=== PATIENT | female | born 1965 | race Caucasian/White ===

== ENCOUNTER 2024-11-27 17:19 | Emergency (ER) | payer OTHER ==
[~2024-11-27] VITALS: Ht 170.2 cm; Wt 102.2 kg
--- NOTE | 2024-11-27 17:29 | ED.PDOC ---
GI ASSESSMENT HPI Comments This is a . The morbidly obese 59 year old female NAHID presenting to the ED with chief complaint of abdominal pain. Patient reports that she has been experiencing upper abdominal pain with associated radiation to the back and nausea for the past 3 hours, worsening over time. EMS states they provided 200mcg of Fentanyl with only minor relief in pain noted. Patient denies any vomiting, diarrhea, fever, chills, dysuria, or hematemesis. Patient was riding and pain at time of evaluation. Patient was hypotensive on arrival. Time Seen by MD: 17:27 Reviewed Notes: Nurses Notes, Mfg Ass[employer] Notes, Medications, Allergies Allergies: Coded Allergies: NO KNOWN ALLERGIES (Unverified , 11/27/24) Information Source: Patient, Emergency Med Personnel Mode of Arrival: EMS Timing: Hours Duration: Since onset Prehospital treatment: None Quality: Cramping, Sharp, Stabbing Vomitus: None Stool: Normal Severity: Severe Recent: None Recent Hx of: None Pain Location: Other (Upper) Modifying Factors: Nothing Associated sign and symptoms: Nausea, Abdominal Pain Past Medical History PAST MEDICAL HISTORY: HTN Surgical History: Denies all surgeries BACK MAKER History: Denies all BACK MAKER Hx Family History Family History: Reviewed,noncontributory to illness Social History Smoker: Non-Smoker Alcohol: Denies ETOH Use Drugs: Denies Drug Use Lives In: Home Constitutional: denies: chills, diaphoresis, fatigue, fever, malaise, sweats, weakness, others EENTM: denies: blurred vision, double vision, ear bleeding, ear discharge, ear drainage, ear pain, ear ringing, eye pain, eye redness, hearing loss, mouth pain, mouth swelling, nasal discharge, nose bleeding, nose congestion, nose pain, photophobia, tearing, throat pain, throat swelling, voice changes, others Respiratory: denies: cough, hemoptysis, orthopnea, SOB at rest, shortness of breath, SOB with excertion, stridor, wheezing, others Cardiovascular: denies: chest pain, dizzy spells, diaphoresis, Dyspnea on exertion, edema, irregular heart beat, left arm pain, lightheadedness, palpitations, PND, syncope, others Gastrointestinal: reports: abdominal pain, nausea; denies: abdomen distended, blood streaked bowels, constipated, diarrhea, dysphagia, difficulty swallowing, hematemesis, melena, poor appetite, poor fluid intake, rectal bleeding, rectal pain, vomiting, others Genitourinary: denies: abnormal vagina bleeding, burning, dyspareunia, dysuria, flank pain, frequency, hematuria, incontinence, pain, , vagina discharge, urgency, others Neurological: denies: dizziness, fainting, headache, left sided numbness, left sided weakness, numbness, paresthesia, pre-existing deficit, right sided numbness, right sided weakness, seizure, speech problems, tingling, tremors, weakness, others Musculoskeletal: denies: back pain, gout, joint pain, joint swelling, muscle pain, muscle stiffness, neck pain, others Integumetry: denies: bruises, change in color, change in hair/nails, dryness, laceration, lesions, lumps, rash, wounds, others Allergic/Immunocompromised: denies: Difficulty Healing, Frequent Infections, Hives, Itching, others Hematologic/Lymphatic: denies: anemia, blood clots, easy bleeding, easy bruising, swollen glands, others Endocrine: denies: excessive hunger, excessive sweating, excessive thirst, excessive urination, flushing, intolerance to cold, intolerance to heat, unexplained weight gain, unexplained weight loss, others Psychiatric: denies: anxiety, bipolar disorder, depression, hopeless, panic disorder, schizophrenia, sleepless, suicidal, others All Other Systems: Reviewed and Negative Physical Exam General Appearance: Moderate Distress (Patient was in [id number] distress due to abdominal pain concerns at time of evaluation.), Obese HEENT: Normal ENT Inspection, Pharynx Normal, TMs Normal Neck: Full Range of Motion, Non-Tender, Normal, Normal Inspection Respiratory: Chest Non-Tender, Lungs Clear, No Accessory Muscle Use, No Respiratory Distress, Normal Breath Sounds Cardiovascular: No Edema, No JVD, No Murmur, No Gallop, Normal Peripheral Pulses, Regular Rate/Rhythm Breast Exam: Deferred Gastrointestinal: Tenderness (Patient has a idixkrui-kv-tjbmee tenderness to palpation throughout the bilateral epigastric region as well as extending into the periumbilical region. Difficult to assess due to body habitus. No pulsatile masses. Abdomen was reasonably soft.) Genitalia: Deferred Pelvic: Deferred Rectal: Deferred Extremities: No calf tenderness, Normal capillary refill, Non-tender Musculoskeletal : Apperance: Normal Neurologic: Alert Cerebellar Function: NOT DONE Reflexes: NOT DONE Skin: Dry, Normal Color, Warm Lymphatic: No Adenopathy Was a procedure done? Was a procedure done?: No GI differential Dx Differential Diagnosis: Appendicitis, Cholangitis, Cholecystitis, Constipation, Diverticular disease, Gastritis/PUD, Gastroenteritis, Pancreatitis, Kidney Stone X-Ray, Labs, Meds, VS Vital Signs Date Time Temp Pulse Resp B/P (MAP) Pulse Ox O2 Delivery O2 Flow Rate FiO2 11/27/24 22:00 66 16 125/86 (99) 91 11/27/24 21:00 78 18 147/51 11/27/24 20:16 81 18 169/82 11/27/24 20:00 97.9 76 23 169/82 (111) 97 97.9 11/27/24 19:30 Room Air* 0 21 11/27/24 19:00 87 18 166/85 11/27/24 18:30 64 11/27/24 18:01 69 15 195/85 11/27/24 17:51 97.7 79 30 92/70 97 97.7 11/27/24 17:50 69 15 95 Room Air* 0 21 11/27/24 17:48 98.2 69 15 195/85 (121) 95 98.2 Lab Test 11/27/24 23:09 11/27/24 20:45 11/27/24 18:32 11/27/24 17:39 Range/Units Urine Color Yellow Yellow Urine Clarity Clear Clear Urine pH 6.0 5.0-9.0 Urine Specific [place] > 1.035 H 1.001-1.035 Urine Protein 1+ H Negative Urine Ketones Negative Negative Urine Blood Negative Negative /uL Urine Nitrite Negative Negative Urine Bilirubin Negative Negative Urine Urobilinogen Normal Negative mg/dL Urine Leukocyte Esterase Negative Negative /uL Urine RBC 22 0 - 4 /hpf Urine Microscopic WBC 47 H 0-5 /HPF Urine Squamous Epithelial Cells Mod <5 /hpf Urine Renal Epithelial Cells Few None Seen /hpf Urine Bacteria Few H None Seen /hpf Urine Mucus Few None Seen Urine Glucose Normal Normal mg/dL Urine Opiates Screen Neg NEGATIVE Urine Fentanyl Screen Pos NEGATIVE Urine Barbiturates Screen Neg NEGATIVE Urine Phencyclidine Screen Neg NEGATIVE Urine Amphetamines Screen Pos NEGATIVE Urine Benzodiazepines Screen Neg NEGATIVE Urine Cocaine Screen Neg NEGATIVE Urine Cannabinoids Screen Neg NEGATIVE Troponin I High Sensitivity 8 10 6 </=34 ng/L White Blood Count 12.2 H 4.4-10.8 10^3/uL Red Blood Count 5.10 4.0-5.20 10^6/uL Hemoglobin 14.6 12.2-16.2 g/dL Hematocrit 42.9 36.0-46.0 % Mean Corpuscular Volume 84.2 80.0-100.0 fL Mean Corpuscular Hemoglobin 28.6 28.0-32.0 pg Mean Corpuscular Hemoglobin Concent 33.9 32.0-36.0 g/dL Red Cell Distribution Width 15.2 H 11.8-14.3 % Platelet Count 341 140-450 10^3/uL Mean Platelet Volume 7.8 6.9-10.8 fL Neutrophils (%) (Auto) 79.7 37.0-80.0 % Lymphocytes (%) (Auto) 13.4 10.0-50.0 % Monocytes (%) (Auto) 6.0 0.0-12.0 % Eosinophils (%) (Auto) 0.2 0.0-7.0 % Basophils (%) (Auto) 0.7 0.0-2.0 % Neutrophils # (Auto) 9.8 H 1.6-8.6 10 ^3/uL Lymphocytes # (Auto) 1.6 0.4-5.4 10 ^3/uL Monocytes # (Auto) 0.7 0-1.3 10 ^3/uL Eosinophils # (Auto) 0 0-0.8 10 ^3/uL Basophils # (Auto) 0.1 0-0.2 10 ^3/uL Nucleated Red Blood Cells 0.1 % Sodium Level 142 136-145 mmol/L Potassium Level 3.5 3.5-5.1 mmol/L Chloride Level 107 98-107 mmol/L Carbon Dioxide Level 25 20-31 mmol/L Anion Gap 10 5-15 Blood Urea Nitrogen 17 9-23 mg/dL Creatinine 1.18 H 0.550-1.02 mg/dL Glomerular Filtration Rate Calc 53 >90 mL/min BUN/Creatinine Ratio 14.4 10.0-20.0 Serum Glucose 111 H 74-106 mg/dL Lactic Acid Level 1.9 0.4-2.0 mmol/L Calcium Level 9.4 8.7-10.4 mg/dL Total Bilirubin 0.4 0.2-1.0 mg/dL Aspartate Amino Transferase (AST) 21 13-40 U/L Alanine Aminotransferase (ALT) 12 7-40 U/L Alkaline Phosphatase 101 46-116 U/L Total Protein 7.4 5.7-8.2 g/dL Albumin 4.4 3.2-4.8 g/dL Lipase 30 12-53 U/L Plasma/Serum Blood Alcohol 3.1 <10 mg/dL Current Medications Medications (Trade) Dose Ordered Sig/Roque Route Start Time Stop Time Status Last Admin Hydromorphone HCl (Dilaudid Injection) 1 mg ONCE ONCE IV 11/27/24 17:30 11/27/24 17:31 DC 11/27/24 18:01 Ondansetron HCl (Zofran) 4 mg ONCE ONCE IV 11/27/24 17:30 11/27/24 17:31 DC 11/27/24 18:00 Hydromorphone HCl (Dilaudid Injection) 1 mg ONCE ONCE IV 11/27/24 20:00 11/27/24 20:01 DC 11/27/24 20:16 X-Ray, Labs, Meds, VS Comment All studies performed the ED were evaluated by me personally. Serum laboratories were only remarkable for a leukocytosis and urine confirmed a urinary tract infection. Patient was given a dose of Rocephin and. CT with contrast of the abdomen and pelvis revealed a developing cholecystitis as well as uterine fibroids. Due to the patient's fluctuating blood pressure concerns as well as the probable development of a acute cholecystitis, patient will require admission. Patient is a [facility] patient therefore, I spoke with Dr. Rojas. Advised him of patient presentation as well as laboratory and imaging findings. He agreed to accept the patient is a transfer. Authorization number [id number]. Time of 1ST Reevaluation: 22:14 Reevaluation 1ST: Improved Consultation: PCP, Surgery Patient Education/Counseling: Diagnosis, Treatment Family Education/Counseling: Diagnosis, Treatment, No Family Present SEPSIS Sepsis Screen Recent Procedure: No On Antibiotic Therapy: No Respiratory Rate >20: No Heart Rate >90: No Temp<36 C (96.8 F) or >38.3 C: No SBP <90 or MAP <65 mmHG: No New Acute Mental Status Change: No Is the patient on CPAP, BIPAP,: No Physician Orders Heplock Iv (11/27/24 ) Ct Ab Pel With Iv Con Only (11/27/24 17:25) Imaging Transfer Request (11/27/24 23:55) Ceftriaxone Ivpb Rocephin (11/28/24 00:30) Vital Signs Date Time Temp Pulse Resp B/P (MAP) Pulse Ox O2 Delivery O2 Flow Rate FiO2 11/27/24 22:00 66 16 125/86 (99) 91 11/27/24 21:00 78 18 147/51 11/27/24 20:16 81 18 169/82 11/27/24 20:00 97.9 76 23 169/82 (111) 97 97.9 11/27/24 19:30 Room Air* 0 21 11/27/24 19:00 87 18 166/85 11/27/24 18:30 64 11/27/24 18:01 69 15 195/85 11/27/24 17:51 97.7 79 30 92/70 97 97.7 11/27/24 17:50 69 15 95 Room Air* 0 21 11/27/24 17:48 98.2 69 15 195/85 (121) 95 98.2 Laboratory Tests Test 11/27/24 17:39 Lactic Acid Level 1.9 mmol/L (0.4-2.0) White Blood Count 12.2 10^3/uL (4.4-10.8) H Medications Medications Dose Ordered Sig/Roque Route Start Time Stop Time Status Last Admin Dose Admin Hydromorphone HCl 1 mg ONCE ONCE IV 11/27/24 17:30 11/27/24 17:31 DC 11/27/24 18:01 Hydromorphone HCl 1 mg ONCE ONCE IV 11/27/24 20:00 11/27/24 20:01 DC 11/27/24 20:16 Ondansetron HCl 4 mg ONCE ONCE IV 11/27/24 17:30 11/27/24 17:31 DC 11/27/24 18:00 Departure 1 Departure Time of Disposition: 22:14 Impression: Primary Impression: Cholecystitis Additional Impression: Urinary tract infection Disposition: 02 SHORT TERM HOSPITAL Condition: Fair Discharged With: Self Critical Care Note Critical Care Time?: No Stability Stability form required: No Heart Score Heart Score: Heart Score Response (Comments) Value History N/A 0 EKG N/A 0 Age N/A 0 Risk Factors N/A 0 Troponin N/A 0 Total 0 I personally scribed for NANCY DAVIS PAC ([email or web address]) on 11/27/24 at 17:29. Electronically submitted by Ayaan German ([email or web address]). NANCY DAVIS PAC Nov 27, 2024 17:29
[2024-11-27 17:50] VITALS: PULSE 69; RESP 15; O2SAT 95
[2024-11-27 17:53] LABS: Hematocrit 42.9 % (36.0-46.0); Hemoglobin 14.6 g/dL (12.2-16.2); Mean Corpuscular Hemoglobin 28.6 pg (28.0-32.0); Mean Corpuscular Volume 84.2 fL (80.0-100.0); Nucleated Red Blood Cells % 0.1 %
[2024-11-27] MEDS: ONDANSETRON HCL 4 MG/2 ML VIAL IV ONE (18:00)
[2024-11-27] MEDS: HYDROmorphone HCL 2 MG/ML VL/or syr IV ONE ×2 (18:01→20:16)
[2024-11-27] MEDS: IOHEXOL 300 MG/ML 100ML BOTTLE IJ ONE (18:30)
[2024-11-27 18:55] LABS: Alanine Aminotransferase 12 U/L (7-40); Albumin 4.4 g/dL (3.2-4.8); Alkaline Phosphatase 101 U/L (46-116); Anion Gap 10 (5-15); BUN/Creatinine Ratio 14.4 (10.0-20.0); Bilirubin, Total 0.4 mg/dL (0.2-1.0); Blood Urea Nitrogen 17 mg/dL (9-23); Calcium 9.4 mg/dL (8.7-10.4); Carbon Dioxide 25 mmol/L (20-31); Chloride 107 mmol/L (98-107); Glucose 111 mg/dL (74-106); Potassium 3.5 mmol/L (3.5-5.1); Sodium 142 mmol/L (136-145); Total Protein 7.4 g/dL (5.7-8.2)
--- NOTE | 2024-11-27 19:01 | ECG ---
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
[2024-11-27 19:07] LABS: Lipase 30 U/L (12-53)
--- NOTE | 2024-11-27 22:03 | DVH ---
CLINICAL HISTORY: Severe upper abdominal pain TECHNIQUE: CT of the abdomen and pelvis was performed with intravenous contrast. This exam was perfor med according to our departmental dose optimization program. Up-to-date CT equipment and radiation do se reduction techniques are utilized as appropriate. 26.05 CTDIVol: 26.05 mGy DLP: 26.05 mGy-cm WID: COMPARISON: None FINDINGS: Lower Thorax: Normal-sized heart without pericardial effusion. Mild mitral annular calcifications. L jerome bases are clear. Liver and Biliary system: Liver is normal in size. Mild nodular contour of the liver. No discrete hep atic lesion. Major portal veins are patent. Cholelithiasis. Suggestion of mild gallbladder wall thic [place]. Upper limits of normal distention of the gallbladder. There is no biliary ductal dilatation. Spleen: Unremarkable. Adrenal Glands and Kidneys: Normal adrenal glands. There is bilateral renal cortical scarring. There are low-density left lower pole renal lesions likely cysts. No hydronephrosis or nephrolithiasis. Pancreas and Retroperitoneum: Unremarkable. Aorta and Major Vessels: Aortoiliac vessels are patent and normal caliber Bowel, Mesentery and Peritoneal space: Normal caliber small and large bowel. Normal appendix. There i s no free air or fluid collection. Lgor-hj-imlxnenl fluid distention of the stomach. Pelvis: Globular enlargement of the uterus. Grossly unremarkable ovaries. There is no pelvic lymphad enopathy. Abdominal wall and Osseous Structures: Multilevel lower thoracic and lumbar spondylosis. No destructi ve osseous lesion. IMPRESSION: Upper limits of normal caliber gallbladder containing cholelithiasis and suggestion of mild gallbladd er wall thickening. DDX for the Wall thickening includes underlying hepatic dysfunction, early acut e cholecystitis or chronic cholecystitis. Correlate with right upper quadrant ultrasound if clinicall y indicated. Mild nodular contour of the liver which may be fibrosis or early cirrhosis. Correlate with clinical s ymptoms and LFTs. [id number]-fh-[id number] fluid distention of the stomach .Globular enlargement of the uterus which could be due to adenomyosis versus the presence of fibroids .
[2024-11-27 23:58] LABS: Opiate Scree,Urine Neg (NEGATIVE)
[2024-11-28 00:11] LABS: Amphetamine Screen, Urine Pos (NEGATIVE); Barbiturate Scree,Urine Neg (NEGATIVE); Benzodiazephine Screen, Urine Neg (NEGATIVE); Cannabinoid Screen, Urine Neg (NEGATIVE); Cocaine Screen, Urine Neg (NEGATIVE); Phencyclidine Screen, Urine Neg (NEGATIVE)
[2024-11-28 00:15] LABS: Urine Protein, UAD 1+ (Negative)
[2024-11-28] MEDS: cefTRIAXone 1GM/50ML D5W 50 ML IV ONE (00:55)
[2024-11-28 02:05] VITALS: TEMP 97.8; O2SAT 98
[2024-11-28 02:35] VITALS: BP 165/94; PULSE 83; RESP 17
[2024-11-28] MEDS: HYDROmorphone HCL 2 MG/ML VL/or syr IV ONE (02:35)
== END 2024-11-28 02:37 | disposition short-term general hospital (02) ==
LOC: EDBD 17:19 → ER 17:19
DX: K81.9 Cholecystitis, unspecified (principal); N39.0 Urinary tract infection, site not specified; I10 Essential (primary) hypertension
CPT/HCPCS: 36415; 74177; 80053; 80307; 80320; 81001; 82947; 83605; 83690; 84484; 85025; 93005; 96365; 96375; 96376; 99285; J0696; J1171; J2405; Q9967